=== PATIENT | female | born 1960 | race Caucasian/White ===

== ENCOUNTER 2016-05-21 13:28 | Emergency (ER) | payer MEDICAID ==
[2016-05-21 13:28] VITALS: BMI 40.0
--- NOTE | 2016-05-21 14:27 | C.PDOC ---
History Of Present Illness 55 y/o F c PMHx DM on Metformin 500 BID p/w hyperglycemia. Patient states she saw her OBGYN 3 weeks ago for heavy vaginal bleeding and yeast infection. Blood work was performed and her glucose was found to be very elevated and she was instructed to go to the ER. She reports increased thirst, dry mouth, metallic taste, blurry vision. She denies fever, vomiting, dyspnea, dysuria. PMD Thelma Fontaine Time Seen by Provider: 05/21/16 14:21 Chief Complaint (Nursing): High Blood Sugar Past Medical History Reviewed: Historical Data, Nursing Documentation, Vital Signs Vital Signs: Last Vital Signs Temp 98.2 F 05/21/16 14:09 Pulse 92 H 05/21/16 14:09 Resp BP Pulse Ox - Medical History PMH: Anxiety, Bipolar Disorder, Depression, Diabetes, Schizophrenia Surgical History: No Surg Hx - [facility] Procedures INDIVID PSYCHOTHERAP NEC (08/25/14) OTHER GROUP THERAPY (08/25/14) Family History: States: Unknown Family Hx - Social History Hx Tobacco Use: Yes (heavy smoker) Hx Alcohol Use: No Hx Substance Use: No - Immunization History Hx Tetanus Toxoid Vaccination: Yes (2012) Hx Influenza Vaccination: No Hx Pneumococcal Vaccination: No Review Of Systems Except As Marked, All Systems Reviewed And Found Negative. Constitutional: Negative for: Fever Cardiovascular: Negative for: Chest Pain Physical Exam - Physical Exam Additional Physical Exam Comments: Constitutional: No acute distress. Head: Normocephalic. Atraumatic. Eyes: PERRL. ENT: Dry mucous membranes. Neck: Supple. Cardiovascular: Regular rate. Radial pulse 2+ bilaterally. Chest: No tenderness. Respiratory: Clear to auscultation bilaterally. GI: Soft. Nontender. Nondistended. Back: No CVA tenderness. Musculoskeletal: No tenderness or swelling of extremities. Skin: No rash. Neurologic: Alert, no focal deficit. ED Course And Treatment - Laboratory Results Result Diagrams: 05/21/16 15:04 05/21/16 15:04 Medical Decision Making Medical Decision Making: Hydrate, r/o DKA. Chest X-Ray, Read by Cheryl Lobo MD: FINDINGS: LUNGS: No focal consolidation. Please note that chest x-ray has limited sensitivity for the detection of pulmonary masses. PLEURA: No significant pleural effusion identified. No definite pneumothorax . CARDIOVASCULAR: The cardiomediastinal silhouette appears within normal limits of size. OSSEOUS STRUCTURES: No acute osseous abnormality identified. VISUALIZED UPPER ABDOMEN: Unremarkable. OTHER FINDINGS: None. IMPRESSION: No focal consolidation, significant pleural effusion, or definite pneumothorax identified. Patient with hyperglycemia, trace ketones, no acidosis, normal bicarb. No DKA. Discussed case with patient's primary care office and [employer] REPRESENTATIVE Roseanna. They gave her appointment for 05/29 at 3pm and instructed increase metformin to 1000mg BID until then. Instructed to return to the ER immediately for fever, dyspnea, vomiting, lethargy, dehydration. Disposition - Disposition Disposition: HOME/ ROUTINE Disposition Time: 16:23 Condition: STABLE Additional Instructions: You have an appointment with Dr. Mccarthy on 05/29, Friday, at 3pm. Prescriptions: MetFORMIN [glucOPHAGE] 1,000 mg PO BID #20 tab Instructions: Diabetic Hyperglycemia (ED) - Clinical Impression Clinical Impression: Hyperglycemia
[2016-05-21] MEDS ORDERED: Sodium Chloride 0.9% 1,000 ML IV STA (14:54)
[2016-05-21 15:08] LABS: BASO # 0.1 K/uL (0.0-0.2); BASO % 0.6 % (0.0-2.0); EOS % 0.3 % (0.0-4.0); HEMATOCRIT 36.6 % (34.0-47.0); LYMPH # 2.5 K/uL (1.0-4.3); LYMPH % 25.1 % (20.0-40.0); MEAN CELL VOLUME 69.6 fL (81.0-99.0); MEAN CORPUSCULAR HEMOGLOBIN 21.8 pg (27.0-31.0); MEAN CORPUSCULAR HGB CONC 31.3 g/dL (33.0-37.0); MEAN PLATELET VOLUME 7.6 fL (7.2-11.7); MONO # 0.9 K/uL (0.0-0.8); RED CELL DISTRIBUTION WIDTH 15.6 % (11.5-14.5); WHITE BLOOD COUNT 10.1 K/uL (4.8-10.8)
[2016-05-21 15:20] LABS: CHLORIDE 95 mmol/L (98-107)
[2016-05-21 15:21] LABS: POTASSIUM 4.4 mmol/L (3.6-5.2); SODIUM 135 mmol/L (132-148)
[2016-05-21 15:21] LABS: DRAW SITE VENOUS; VENOUS BLOOD GAS BASE EXCESS 0.8 mmol/L (0.0-2.0); VENOUS BLOOD GAS PCO2 46 mmHg (40-60); VENOUS BLOOD PH 7.37 (7.32-7.43)
[2016-05-21 15:23] LABS: ALB/GLOB RATIO 1.3 (1.0-2.1); AST/SGOT 32 U/L (14-36); BILIRUBIN,TOTAL 0.5 mg/dL (0.2-1.3); BLOOD UREA NITROGEN 4 mg/dL (7-17); CARBON DIOXIDE 25 mmol/L (22-30); GFR AFRICAN-AMERICAN > 60; TOTAL PROTEIN 7.7 g/dL (6.3-8.3)
[2016-05-21 15:24] LABS: ALKALINE PHOSPHATASE 99 U/L (38-126); ALT/SGPT 25 U/L (9-52); CALCIUM 9.5 mg/dl (8.6-10.4)
[2016-05-21 15:38] LABS: GLUCOSE,RANDOM 402 mg/dL (65-105)
[2016-05-21 15:41] LABS: RBC URINE 7 /hpf (0-3); URINE BILIRUBIN NEGATIVE (NEGATIVE); URINE COLOR Straw (YELLOW); URINE GLUCOSE (UA) 3+ mg/dL (Normal); URINE KETONE 1+ mg/dL (NEGATIVE); URINE LEUKOCYTE ESTERASE NEG Leu/uL (Negative); URINE PROTEIN NEGATIVE (NEGATIVE); URINE UROBILINOGEN NORMAL mg/dL (0.2-1.0); WBC URINE 1 /hpf (0-5)
[2016-05-21 15:43] LABS: URINE BLOOD 1+ (NEGATIVE)
--- NOTE | 2016-05-21 16:04 | RAD ---
HISTORY: hyperglycemia COMPARISON: None available. TECHNIQUE: Chest, one view. FINDINGS: LUNGS: No focal consolidation. Please note that chest x-ray has limited sensitivity for the detection of pulmonary masses. PLEURA: No significant pleural effusion identified. No definite pneumothorax . CARDIOVASCULAR: The cardiomediastinal silhouette appears within normal limits of size. OSSEOUS STRUCTURES: No acute osseous abnormality identified. VISUALIZED UPPER ABDOMEN: Unremarkable. OTHER FINDINGS: None. IMPRESSION: No focal consolidation, significant pleural effusion, or definite pneumothorax identified.
[2016-05-21 16:48] VITALS: BP 102/65; PULSE 84; RESP 16; TEMP 98.1; O2SAT 99
== END 2016-05-21 16:49 | disposition home or self-care (01) ==
LOC: C.ER 13:28
DX: E11.65 Type 2 diabetes mellitus with hyperglycemia (principal); Z79.84 Long term (current) use of oral hypoglycemic drugs
CPT/HCPCS: 71010; 80053; 81001; 82009; 82803; 85025; 86850; 86900; 96360; 99284; J7040

== ENCOUNTER 2016-10-04 12:41 | Emergency (ER) | payer MEDICAID ==
[2016-10-04 12:42] VITALS: BMI 40.0
[2016-10-04 13:06] VITALS: BP 115/65; TEMP 98.7
--- NOTE | 2016-10-04 13:23 | C.PDOC ---
History Of Present Illness 56 y/o female presents to ED with complaints of left sided digitally and reproducible chest pain for the last 2 days. Denies heavy lifting, trauma, shortness of breath, palpitations, radiation of pain, or fever. Time Seen by Provider: 10/04/16 13:21 Chief Complaint (Nursing): Chest Pain History Per: Patient History/Exam Limitations: no limitations Onset/Duration Of Symptoms: Days (2) Current Symptoms Are (Timing): Still Present Severity: Moderate Quality: "Pain" Associated Symptoms: denies: Nausea, Dyspnea, Diaphoresis, Syncope Modifying Factors: None Exacerbating Factors: None Alleviating Factors: None Recent travel outside of the [place]: No Additional History Per: Patient Past Medical History Reviewed: Historical Data, Nursing Documentation, Vital Signs Vital Signs: Last Vital Signs Temp 98.7 F 10/04/16 13:05 Pulse 74 10/04/16 13:39 Resp 16 10/04/16 13:39 BP 115/65 10/04/16 13:39 Pulse Ox 100 10/04/16 13:39 - Medical History PMH: Anxiety, Bipolar Disorder, Depression, Diabetes, HTN, Schizophrenia Denies: HIV - [facility] Procedures INDIVID PSYCHOTHERAP NEC (08/25/14) OTHER GROUP THERAPY (08/25/14) Family History: States: Unknown Family Hx - Social History Hx Tobacco Use: Yes (heavy smoker) Hx Alcohol Use: No Hx Substance Use: No - Immunization History Hx Tetanus Toxoid Vaccination: Yes (2012) Hx Influenza Vaccination: No Hx Pneumococcal Vaccination: No Review Of Systems Except As Marked, All Systems Reviewed And Found Negative. Constitutional: Negative for: Fever, Chills Cardiovascular: Positive for: Chest Pain. Negative for: Palpitations, Edema, Light Headedness Respiratory: Negative for: Cough, Shortness of Breath, Hemoptysis Gastrointestinal: Negative for: Nausea, Vomiting, Abdominal Pain, Diarrhea Genitourinary: Negative for: Dysuria, Frequency, Hematuria Musculoskeletal: Negative for: Neck Pain, Back Pain Skin: Negative for: Rash, Bruising Neurological: Negative for: Weakness, Numbness, Headache, Dizziness Physical Exam - Physical Exam Appears: Non-toxic, No Acute Distress Skin: Normal Color, Warm, Dry, No Rash Head: Atraumatic, Normacephalic Eye(s): bilateral: Normal Inspection Nose: Normal Oral Mucosa: Moist Neck: Normal ROM, Supple Chest: Symmetrical, No Deformity, Tenderness (digitally and reproducible pain to left parasternal border area of T2. ) Cardiovascular: Rhythm Regular, No Murmur Respiratory: Normal Breath Sounds, No Rales, No Rhonchi, No Wheezing Gastrointestinal/Abdominal: Soft, No Tenderness Extremity: Bilateral: Atraumatic, Normal ROM Neurological/Psych: Oriented x3, Normal Speech, Normal Cognition ED Course And Treatment ECG: Interpreted By Me ECG Rhythm: Sinus Rhythm ECG Interpretation: Normal Rate From EC O2 Sat by Pulse Oximetry: 96 (on RA) Pulse Ox Interpretation: Normal Medical Decision Making Medical Decision Making: digitally and positionally reproducable L parasternal CP with normal EKG, no associated cardiac s/s pt defers w/u with informed consent. ice/nsaids educated Disposition Doctor Will See Patient In The: Office Counseled Patient/Family Regarding: Studies Performed, Diagnosis - Disposition Referrals: [facility] [Outside] [facility] [Outside] [facility] [Outside] Disposition: HOME/ ROUTINE Disposition Time: 13:23 Condition: GOOD Additional Instructions: continue ice packs 1/2 hour per hour, nothing hot. Mortrin 400-600 mg every 6 hours as needed for chest wall discomfort pepcid/protonix each night to prevent stomach irritation from the Motrin No heavy lifting for 1 week Follow-up in our Clinic as needed. Instructions: Costochondritis (ED) Forms: [facility] (Tongan) - Clinical Impression Clinical Impression: Chest wall discomfort - Scribe Statement The provider has reviewed the documentation as recorded by the Scribfernando Machado All medical record entries made by the Scribe were at my direction and personally dictated by me. I have reviewed the chart and agree that the record accurately reflects my personal performance of the history, physical exam, medical decision making, and the department course for this patient. I have also personally directed, reviewed, and agree with the discharge instructions and disposition.
[2016-10-04 13:41] VITALS: PULSE 74; RESP 16
[2016-10-04 14:37] VITALS: O2SAT 96
--- NOTE | 2016-10-05 20:02 | CARD ---
APPROVED REPORT EKG Measurement Heart [id number] <Conclusion> Normal sinus rhythm Normal ECG
== END 2016-10-04 13:38 | disposition home or self-care (01) ==
LOC: C.ER 12:41
DX: R07.89 Other chest pain (principal)

== ENCOUNTER 2016-11-28 13:14 | Emergency (ER) | payer MEDICAID ==
[2016-11-28 13:15] VITALS: BMI 40.0
[2016-11-28 13:50] VITALS: O2SAT 100
[2016-11-28] MEDS ORDERED: Sodium Chloride 0.9% 1,000 ML IV ONE (14:10)
[2016-11-28 14:42] LABS: BASO % 0.5 % (0.0-2.0); EOS # 0.1 K/uL (0.0-0.7); EOS % 0.7 % (0.0-4.0); HEMATOCRIT 38.7 % (34.0-47.0); LYMPH # 3.6 K/uL (1.0-4.3); LYMPH % 40.4 % (20.0-40.0); MEAN CELL VOLUME 69.5 fL (81.0-99.0); MEAN CORPUSCULAR HEMOGLOBIN 22.3 pg (27.0-31.0); MEAN CORPUSCULAR HGB CONC 32.1 g/dL (33.0-37.0); MONO # 0.7 K/uL (0.0-0.8); MONO % 7.8 % (0.0-10.0); RED CELL DISTRIBUTION WIDTH 16.2 % (11.5-14.5); WHITE BLOOD COUNT 8.8 K/uL (4.8-10.8)
[2016-11-28 14:46] LABS: CHLORIDE 99 mmol/L (98-107); SODIUM 137 mmol/L (132-148)
[2016-11-28 14:48] LABS: BILIRUBIN,TOTAL 0.5 mg/dL (0.2-1.3); CARBON DIOXIDE 28 mmol/L (22-30); GFR AFRICAN-AMERICAN > 60
[2016-11-28 14:49] LABS: ALKALINE PHOSPHATASE 85 U/L (38-126); ALT/SGPT 30 U/L (9-52); AST/SGOT 17 U/L (14-36); BLOOD UREA NITROGEN 9 mg/dL (7-17); CALCIUM 9.9 mg/dl (8.6-10.4); GLUCOSE,RANDOM 121 mg/dL (65-105); TOTAL PROTEIN 8.4 g/dL (6.3-8.3)
[2016-11-28 14:50] LABS: ALCOHOL SERUM < 10 mg/dl (0-10)
[2016-11-28] MEDS ORDERED: Sodium Chloride 0.9% 1,000 ML ONE (15:12)
[2016-11-28 15:47] LABS: URINE BILIRUBIN NEGATIVE (NEGATIVE); URINE BLOOD 1+ (NEGATIVE); URINE COLOR Straw (YELLOW); URINE GLUCOSE (UA) NORMAL (Normal); URINE KETONE NEGATIVE (NEGATIVE); URINE LEUKOCYTE ESTERASE NEG Leu/uL (Negative); URINE PROTEIN NEGATIVE (NEGATIVE); URINE UROBILINOGEN NORMAL mg/dL (0.2-1.0); WBC URINE < 1 /hpf (0-5)
[2016-11-28 15:50] LABS: RBC URINE 2 /hpf (0-3); URINE BACTERIA RARE (<OCC)
--- NOTE | 2016-11-28 16:02 | C.PDOC ---
History Of Present Illness Pt states she lost balance and fell forward on her knees yesterday. No LOC. No head injury. - HPI Time Seen by Provider: 11/28/16 13:43 Chief Complaint (Nursing): Trauma History Per: Patient Injury Occurred (Timing): Days Ago: (1) Location Of Injury: Right: Knee, Left: Knee, Anterior: Knee Severity: Moderate Additional History Per: Prior Records - Fall Fall:Prior To Injury: Lost Balance (?) Past Medical History Reviewed: Historical Data, Nursing Documentation, Vital Signs Vital Signs: Last Vital Signs Temp 98.4 F 11/28/16 13:35 Pulse 97 H 11/28/16 13:35 Resp 20 11/28/16 13:35 BP 132/78 11/28/16 13:35 Pulse Ox 100 11/28/16 16:04 - Medical History PMH: Anxiety, Bipolar Disorder, Depression, Diabetes, HTN, Schizophrenia - [facility] Procedures INDIVID PSYCHOTHERAP NEC (08/25/14) OTHER GROUP THERAPY (08/25/14) Family History: States: Unknown Family Hx - Social History Hx Tobacco Use: Yes (heavy smoker) Hx Alcohol Use: No Hx Substance Use: No - Immunization History Hx Tetanus Toxoid Vaccination: Yes (2012) Hx Influenza Vaccination: No Hx Pneumococcal Vaccination: No Review Of Systems Except As Marked, All Systems Reviewed And Found Negative. Constitutional: Negative for: Fever Cardiovascular: Negative for: Chest Pain, Palpitations Respiratory: Negative for: Shortness of Breath Gastrointestinal: Negative for: Vomiting Musculoskeletal: Positive for: Back Pain (low). Negative for: Neck Pain Skin: Negative for: Rash Neurological: Negative for: Weakness, Numbness, Seizures, Altered Mental Status Psych: Positive for: Depression. Negative for: Suicidal ideation Physical Exam - Physical Exam Appears: Non-toxic, No Acute Distress Skin: Normal Color, Warm, Dry Head: Atraumatic, Normacephalic Eye(s): bilateral: Normal Inspection, PERRL, EOMI Neck: Normal ROM, No Midline Cervical Tenderness, No Step Off Deformity, Supple Chest: Symmetrical, No Deformity Cardiovascular: Rhythm Regular Respiratory: Normal Breath Sounds, No Accessory Muscle Use Gastrointestinal/Abdominal: Soft, No Tenderness Back: No CVA Tenderness, Paraspinal Tenderness (lumbosacral), Other ( superficial lacerations on b/l forearms at various stages of healing, 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".) Extremity: Normal ROM, Tenderness (anterior b/l knee with ecchymosis), No Deformity Pulses: Left Dorsalis Pedis: Normal, Right Dorsalis Pedis: Normal Neurological/Psych: Oriented x3, Normal Motor, Normal Sensation ED Course And Treatment - Laboratory Results Result Diagrams: 11/28/16 14:33 11/28/16 14:33 Lab Interpretation: No Acute Changes Urine POC: Negative ECG: Interpreted By Me, Viewed By Me ECG Rhythm: Sinus Rhythm, Nonspecific Changes ECG Interpretation: No Acute Changes Rate From EC O2 Sat by Pulse Oximetry: 100 Pulse Ox Interpretation: Normal Progress Note: Pt was evaluated by the chemical tank worker who d/w Dr. Alva. They psychiatrically cleared pt for discharge home. Pt has appointment with her mental health professional tomorrow. Reassessment Condition: Improved Disposition Counseled Patient/Family Regarding: Studies Performed, Diagnosis, Need For Followup, Rx Given, Smoking Cessation - Disposition Disposition: HOME/ ROUTINE Disposition Time: 17:03 Condition: IMPROVED Additional Instructions: Follow up with your mental health professional tomorrow as scheduled. Follow up with your primary doctor within 1 week. Return to the ER if you develop weakness , pass out, worsening of symptoms or if you have any other concerns. Prescriptions: Naproxen [Naprosyn] 1 tab PO BID PRN #20 tab PRN Reason: Pain Instructions: Knee Sprain (ED) Forms: [facility] (Khmer) - Clinical Impression Clinical Impression: Knee contusion, Fall
--- NOTE | 2016-11-28 16:35 | RAD ---
PROCEDURE: Bilateral knees dated 11/28/2016 HISTORY: Bilateral knee pain; s/p fall on knees yesterday COMPARISON: No prior studies available FINDINGS: BONES: No evidence of acute displaced fracture nor dislocation. The osseous structures appear intact. . There is mild degenerative osteoarthritis most notably affecting the medial compartments. Joint spaces are relatively preserved however there are small medial marginal osteophyte formation seen arising from the medial tibial plateau and distal medial femoral condyles left slightly larger than right. Small left-sided posterior patellar osteophytes also present. Small of left suprapatellar joint effusion. No significant right-sided effusion JOINTS: Right Knee: Normal. No osteoarthritis. Left knee: Normal. No osteoarthritis. SOFT TISSUES: Right Knee: Normal. Left Knee: Normal. JOINT EFFUSION: Right Knee: None. Left Knee: None. OTHER FINDINGS: None. IMPRESSION: No evidence of acute displaced fracture nor dislocation. Small left-sided suprapatellar joint effusion. DJD both knees left greater than right as detailed above.
[2016-11-28 17:16] VITALS: BP 116/72; PULSE 73; RESP 18; TEMP 97.7
--- NOTE | 2016-11-29 11:51 | CARD ---
APPROVED REPORT EKG Measurement Heart [id number] <Conclusion> Normal sinus rhythm Possible Left atrial enlargement Borderline ECG
== END 2016-11-28 17:31 | disposition home or self-care (01) ==
LOC: C.ER 13:14
DX: S80.02XA Contusion of left knee, initial encounter (principal); S80.01XA Contusion of right knee, initial encounter; W01.0XXA Fall on same level from slipping, tripping and stumbling without subsequent striking against object, initial encounter; I10 Essential (primary) hypertension; E11.9 Type 2 diabetes mellitus without complications; Z87.891 Personal history of nicotine dependence; M17.0 Bilateral primary osteoarthritis of knee
CPT/HCPCS: 73562; 80053; 80320; 80324; 80329; 80345; 80346; 80349; 80353; 80358; 80361; 81001; 83992; 84703; 85025; 93005; 96361; 96374; 99285; J1885; J7040

== ENCOUNTER 2018-04-29 12:49 | Inpatient (IN) | payer MEDICAID ==
[2018-04-29 12:50] VITALS: BMI 40.0
[2018-04-29 15:19] LABS: BASO % 0.5 % (0.0-2.0); EOS % 0.2 % (0.0-4.0); LYMPH # 3.3 K/uL (1.0-4.3); LYMPH % 30.6 % (20.0-40.0); MEAN CORPUSCULAR HEMOGLOBIN 22.3 pg (27.0-31.0); MEAN CORPUSCULAR HGB CONC 31.9 g/dL (33.0-37.0); MEAN PLATELET VOLUME 7.5 fL (7.2-11.7); MONO # 0.7 K/uL (0.0-0.8); NEUT # 6.6 K/uL (1.8-7.0); NEUT % 61.7 % (50.0-75.0); NRBC % 0.1 % (0.0-2.0); RBC 6.5 Mil/uL (3.80-5.20); RED CELL DISTRIBUTION WIDTH 14.6 % (11.5-14.5); WHITE BLOOD COUNT 10.7 K/uL (4.8-10.8)
[2018-04-29 15:22] LABS: HEMOGLOBIN 14.5 g/dL (11.0-16.0)
[2018-04-29 15:32] LABS: ALB/GLOB RATIO 1.3 (1.0-2.1); ALBUMIN 4.4 g/dL (3.5-5.0); ALT/SGPT 10 U/L (9-52); AST/SGOT 18 U/L (14-36); BLOOD UREA NITROGEN 7 mg/dL (7-17); CALCIUM 9.7 mg/dl (8.6-10.4); GFR NON-AFRICAN AMERICAN > 60
[2018-04-29] MEDS ORDERED: Sodium Chloride 0.9% 1,000 ML IV ONE (15:36)
--- NOTE | 2018-04-29 16:05 | CT ---
Date of service: 04/29/2018 PROCEDURE: CT OF THE TEMPORAL BONES WITHOUT CONTRAST HISTORY: right mastoid and ear pain. hx dm COMPARISON: None available. TECHNIQUE: High resolution axial images of the temporal bones were obtained. Coronal and sagittal reformats were generated. Radiation dose: Total exam DLP = 706.28 mGy-cm. This CT exam was performed using one or more of the following dose reduction techniques: Automated exposure control, adjustment of the mA and/or kV according to patient size, and/or use of iterative reconstruction technique. FINDINGS: RIGHT TEMPORAL BONE: RIGHT MIDDLE EAR: Normal. RIGHT INNER EAR: Cochlea: Normal. Semicircular canals: Normal. RIGHT MASTOID AIR CELLS: Normal. RIGHT INTERNAL AUDITORY CANAL: Normal. RIGHT EXTERNAL AUDITORY CANAL: Normal. RIGHT VESTIBULAR AND COCHLEAR AQUEDUCT: Normal. OTHER FINDINGS: None. LEFT TEMPORAL BONE: LEFT MIDDLE EAR: Normal. LEFT INNER EAR: Cochlea: Normal. Semicircular canals: Normal. LEFT MASTOID AIR CELLS: Normal. LEFT INTERNAL AUDITORY CANAL: Normal. LEFT EXTERNAL AUDITORY CANAL: Normal. LEFT VESTIBULAR AND COCHLEAR AQUEDUCTS: Normal. OTHER FINDINGS: None. IMPRESSION: Unremarkable non contrast enhanced CT of the temporal bones.
--- NOTE | 2018-04-29 16:13 | C.PDOC ---
History Of Present Illness 57 y/o female with dm and bipolar disorder presents to ED with 2 day hx of right ear pain and swelling with pain that radiates behind and distal to right ear. denies fever and chills. pt did not take po dm medication this morning. pt not taking anything for pain at home. Time Seen by Provider: 04/29/18 14:45 Chief Complaint (Nursing): ENT Problem History Per: Patient History/Exam Limitations: None Onset/Duration Of Symptoms: Days Current Symptoms Are (Timing): Worse Quality (Ear): Pain W/Touch, Swelling. denies: Discharge Symptoms Have Been: Continuous Severity: Moderate Past Medical History Reviewed: Historical Data, Nursing Documentation, Vital Signs Vital Signs: Last Vital Signs Temp 98.1 F 04/29/18 13:15 Pulse 91 H 04/29/18 13:15 Resp 18 04/29/18 13:15 BP 104/72 04/29/18 13:15 Pulse Ox 98 04/29/18 13:15 - Medical History PMH: Anxiety, Bipolar Disorder, Depression, Diabetes, HTN, Malignancy (colon CA), Schizophrenia Denies: HIV, Chronic Kidney Disease, Seizures, Sexually Transmitted Disease - [facility] Procedures INDIVID PSYCHOTHERAP NEC (08/25/14) OTHER GROUP THERAPY (08/25/14) Family History: States: Unknown Family Hx - Social History Hx Tobacco Use: Yes (heavy smoker) Hx Alcohol Use: No Hx Substance Use: No - Immunization History Hx Tetanus Toxoid Vaccination: Yes (2012) Hx Influenza Vaccination: No Hx Pneumococcal Vaccination: No Review Of Systems Constitutional: Negative for: Fever, Chills ENT: Positive for: Ear Pain, Throat Pain. Negative for: Ear Discharge, Throat Swelling Cardiovascular: Negative for: Chest Pain Respiratory: Negative for: Cough Gastrointestinal: Negative for: Nausea, Vomiting Musculoskeletal: Positive for: Neck Pain Neurological: Negative for: Weakness, Numbness Physical Exam - Physical Exam Appears: Non-toxic, No Acute Distress Skin: Warm, Dry Head: Atraumatic, Normacephalic, Tenderness (right mastoid) Eye(s): bilateral: Normal Inspection Ear(s): Left: Normal, Right: TM Erythema, Other (mild swelling and erythema in canal, no debris. +mastoid tenderness and tender distal to right ear. ) Nose: No Discharge Oral Mucosa: Moist Tongue: Normal Appearing Lips: Normal Appearing Throat: Erythema, No Exudate Neck: No Midline Cervical Tenderness, Supple Lymphatic: Adenopathy (tender submandibular node on right side) Cardiovascular: Rhythm Regular Respiratory: No Decreased Breath Sounds, No Wheezing ED Course And Treatment - Laboratory Results Result Diagrams: 04/29/18 15:17 04/29/18 15:17 Lab Results: Total Bilirubin 0.6 mg/dL (0.2-1.3) 04/29/18 15:17 AST 18 U/L (14-36) 04/29/18 15:17 ALT 10 U/L (9-52) 04/29/18 15:17 Alkaline Phosphatase 123 U/L (38-126) 04/29/18 15:17 Total Protein 7.7 g/dL (6.3-8.3) 04/29/18 15:17 Albumin 4.4 g/dL (3.5-5.0) 04/29/18 15:17 Globulin 3.3 gm/dL (2.2-3.9) 04/29/18 15:17 Albumin/Globulin Ratio 1.3 (1.0-2.1) 04/29/18 15:17 O2 Sat by Pulse Oximetry: 98 Pulse Ox Interpretation: Normal - CT Scan/US iac Other Rad Studies (CT/US): Read By Radiologist, Radiology Report Reviewed CT/US Interpretation: Unremarkable non contrast enhanced CT of the temporal bones. Medical Decision Making Medical Decision Making: pt with hx dm and right ear and mastoid pain; will get labs and mastoid ct to r/o mastoiditis. 1700 ct neg for mastoiditis; pt being given fluids for elevated glucose; given dose of clindamycin in ed. will d/c with clinda and cortisporin otic. Disposition - Disposition Forms: [facility] (Thai)
[2018-04-29] MEDS ORDERED: Ciprofloxacin 400mg/200ml D5W 400 MG/200 ML BAG IVPB STA (17:58)
[2018-04-29] MEDS ORDERED: Ciprofloxacin 400mg/200ml D5W 400 MG/200 ML BAG IVPB ONE (18:12)
--- NOTE | 2018-04-29 18:14 | CP.PCM.CON ---
History of Present Illness - History of Present Illness History of Present Illness: 57 y/o female with dm and bipolar disorder presents to ED with 2 day hx of right ear pain and swelling with pain that radiates behind and distal to right ear. denies fever and chills. started on empiric IV rx pending imaging and ENT eval cultures sent - Medical History PMH: Anxiety, Bipolar Disorder, Depression, Diabetes, HTN, Malignancy (colon CA), Schizophrenia Denies: HIV, Chronic Kidney Disease, Seizures, Sexually Transmitted Disease - [facility] Procedures INDIVID PSYCHOTHERAP NEC (08/25/14) OTHER GROUP THERAPY (08/25/14) Review of Systems - Review of Systems All systems: reviewed and no additional remarkable complaints except - Constitutional Constitutional: As Per HPI - EENT Eyes: absent: As Per HPI, Blind Spots, Blurred Vision, Change in Vision, Decreased Night Vision, Diplopia, Discharge, Dry Eye, Exophthalmos, Floaters, Irritation, Itchy Eyes, Loss of Peripheral Vision, Pain, Photophobia, Requires Corrective Lenses, Sees Flashes, Spots in Vision, Tunnel Vision, Other Visual Disturbances, Loss of Vision, Other Ears: As Per HPI Nose/Mouth/Throat: absent: As Per HPI, Epistaxis, Nasal Congestion, Nasal Discharge, Nasal Obstruction, Nasal Trauma, Nose Pain, Post Nasal Drip, Sinus Pain, Sinus Pressure, Bleeding Gums, Change in Voice, Dental Pain, Dry Mouth, Dysphagia, Halitosis, Hoarsness, Lip Swelling, Mouth Lesions, Mouth Pain, Odynophagia, Sore Throat, Throat Swelling, Tongue Swelling, Facial Pain, Neck Pain, Neck Mass, Other - Breasts Breasts: absent: As Per HPI, Change in Shape, Mass, Pain, Nipple Discharge, Nipple Inversion, Skin Changes, Swelling, Other - Cardiovascular Cardiovascular: absent: As Per HPI, Acrocyanosis, Chest Pain, Chest Pain at Res t, Chest Pain with Activity, Claudication, Diaphoresis, Dyspnea, Dyspnea on Exertion, Edema, Irregular Heart Rhythm, Pain Radiating to Arm/Neck/Jaw, Leg Edema, Leg Ulcers, Lightheadedness, Orthopnea, Palpitations, Paroxysmal Nocturnal Dyspnea, Pedal Edema, Radiating Pain, Rapid Heart Rate, Slow Heart Rate, Syncope, Other - Respiratory Respiratory: absent: As Per HPI, Cough, Dyspnea, Hemoptysis, Dyspnea on Exertion, Wheezing, Snoring, Stridor, Pain on Inspiration, Chest Congestion, Excessive Mucous Production, Change in Mucous Color, Pain with Coughing, Other - Gastrointestinal Gastrointestinal: absent: As Per HPI, Abdominal Pain, Belching, Bloating, Change in Bowel Habits, Change in Stool Character, Coffee Ground Emesis, Constipation, Cramping, Diarrhea, Dyspepsia, Dysphagia, Early Satiety, Excessive Flatus, Fecal Incontinence, Heartburn, Hematemesis, Hematochezia, Loose Stools, Melena, Nausea, Odynophagia, Temesmus, Vomiting, Other - Genitourinary Genitourinary: absent: As Per HPI, Change in Urinary Stream, Difficulty Urinating, Dysuria, Flank Pain, Hematuria, Pyuria, Nocturia, Urinary Incontinence, Urinary Frequency, Urinary Hesitance, Urinary Urgency, Voiding Fr eq/Small Amts, Freq UTI, Hx Renal/Bladder Calculi, Hx /Renal Surgery, Bladder Distension, Other - Reproductive: Female Reproductive:Female: absent: As Per HPI, Amenorrhea, Amenorrhea/ Control, Currently Menstual, Cycle <21 Days, Cycle >35 Days, Cycle Variable, Menses 1-7 Days, Menses >/= 8 Days, Menses Variable, Cycle > 4 Weeks Between, No Menses for 6 Months, Heavy Menses, Light Menses, Normal Menses, Spotting Between Cycles, S/P Hysterectomy, Menopausal, Post Menopausal, Premenarche, Abnormal Vaginal Bleeding, Dysmenorrhea, Dyspareunia, Genital Lesions, Genital Pruritis, Pelvic Pain, Prolapse Symptoms, Sexual Dysfunction, Vaginal Discharge, Vaginal Dryness, Vaginal Odor, Vaginal Pruritis, Other - Menstruation Menstruation: absent: As Per HPI, Amenorrhea, Amenorrhea/ Control, Currently Menstual, Cycle <21 Days, Cycle >35 Days, Cycle Variable, Menses 1-7 Days, Menses >/= 8 Days, Menses Variable, Cycle > 4 Weeks Between, No Menses for 6 Months, Heavy Menses, Light Menses, Normal Menses, Spotting Between Cycles, S/P Hysterectomy, Menopausal, Post Menopausal, Premenarche, Abnormal Vaginal Bleeding, Dysmenorrhea, Other - Musculoskeletal Musculoskeletal: absent: As Per HPI, Abnormal Gait, Arthralgias, Atrophy, Back Pain, Deformity, Joint Swelling, Limited Range of Motion, Loss of Height, Muscle Cramps, Muscle Weakness, Myalgias, Neck Pain, Numbness, Radiating Pain into Limb, Stiffness, Tingling, Other - Integumentary Integumentary: absent: As Per HPI, Acne, Alopecia, Bleeding Lesions, Change in Hair, Change in Nails, Change in Pigmentation, Changing Lesions, Dry Skin, Erythema, Furuncle, Hirsutism, Lesions, New Lesions, Non-Healing Lesions, Photosensitivity, Pruritus, Rash, Skin Pain, Skin Ulcer, Sores, Striae, Swelling, Unusual Bruising, Wounds, Jaundice, Other - Neurological Neurological: absent: As Per HPI, Abnormal Gait, Abnormal Hearing, Abnormal Movements, Abnormal Speech, Behavioral Changes, Burning Sensations, Confusion, Convulsions, Disequilibrium, Dizziness, Numbness, Focal Weakness, Frequent Falls, Headaches, Lack of Coordination, Loss of Vision, Memory Loss, Paresthesias, Radicular Pain, Restless Legs, Sensory Deficit, Syncope, Tingling, Tremor, Vertigo, Weakness, Other Visual Disturbances, Other - Psychiatric Psychiatric: absent: As Per HPI, Abnormal Sleep Pattern, Anhedonia, Anxiety, Auditory Hallucinations, Behavioral Changes, Change in Appetite, Change in Libido, Confusion, Depression, Difficulty Concentrating, Hallucinations, Homicidal Ideation, Hopelessness, Irritability, Memory Loss, Mood Swings, Panic Attacks, Paranoia, Suicidal Ideation, Visual Hallucinations, Tactile Hallucinations, Other - Endocrine Endocrine: absent: As Per HPI, Change in Body Appearance, Change in Libido, Cold Intolorance, Deepening of Voice, Excessive Sweating, Fatigue, Flushing, Heat Intolorance, Increase in Ring/Shoe/Hat Size, Palpitations, Polydipsia, Polyphagia, Polyuria, Other - Hematologic/Lymphatic Hematologic: absent: As Per HPI, Easy Bleeding, Easy Bruising, Lymphadenopathy, Other Past Patient History - Infectious Disease Hx of Infectious Diseases: None - Tetanus Immunizations Tetanus Immunization: Unknown - Past Medical History & Family History Past Medical History?: Yes - Past Social History Smoking Status: Heavy Smoker > 10 Cigarettes Daily - CARDIAC Hx Hypertension: Yes - PULMONARY Hx Tuberculosis: No - NEUROLOGICAL Hx Seizures: No - HEENT Hx HEENT Problems: No - RENAL Hx Chronic Kidney Disease: No - ENDOCRINE/METABOLIC Hx Endocrine Disorders: Yes (DMII) Hx Diabetes Mellitus Type 2: Yes - HEMATOLOGICAL/ONCOLOGICAL Hx Human Immunodeficiency Virus (HIV): No - INTEGUMENTARY Hx Dermatological Problems: No - MUSCULOSKELETAL/RHEUMATOLOGICAL Hx Musculoskeletal Disorders: No Hx Falls: No - GASTROINTESTINAL Hx Gastrointestinal Disorders: Yes Other/Comment: colon ca - GENITOURINARY/GYNECOLOGICAL Hx Sexually Transmitted Disorders: No - PSYCHIATRIC Hx Anxiety: Yes Hx Bipolar Disorder: Yes Hx Depression: Yes Hx Schizophrenia: Yes Hx Substance Use: No - SURGICAL HISTORY Hx Surgeries: Yes Hx Hysterectomy: Yes Other/Comment: ABDOMINAL SURGERY WITH MESH, colon resection. TOE SURGERY - ANESTHESIA Hx Anesthesia: Yes Hx Anesthesia Reactions: No Hx Malignant Hyperthermia: No Meds Allergies/Adverse Reactions: Allergies Allergy/AdvReac Type Severity Reaction Status Date / Time Penicillins Allergy RASH Verified 07/16/17 20:42 - Medications Medications: Current Medications Ciprofloxacin (Cipro 400mg/200ml Dsw) 400 mg in 200 mls @ 133 mls/hr IVPB STAT STA; Protocol Stop: 04/29/18 19:28 Physical Exam - Constitutional Appears: Non-toxic, No Acute Distress, Chronically Ill - Head Exam Head Exam: ATRAUMATIC, NORMAL INSPECTION, NORMOCEPHALIC - Eye Exam Eye Exam: EOMI, PERRL. absent: Scleral icterus Pupil Exam: NORMAL ACCOMODATION - ENT Exam ENT Exam: Mucous Membranes Dry, Mucous Membranes Moist, Normal Oropharynx. absent: TM's Normal Bilaterally Additional comments: erythema and tenderness left external canal dull TM + exudate - Neck Exam Neck exam: Negative for: Lymphadenopathy, Thyromegaly - Respiratory Exam Respiratory Exam: Decreased Breath Sounds, Clear to Auscultation Bilateral - Cardiovascular Exam Cardiovascular Exam: REGULAR RHYTHM, +S1, +S2 - GI/Abdominal Exam GI & Abdominal Exam: Diminished Bowel Sounds, Soft. absent: Tenderness - Rectal Exam Rectal Exam: Deferred - Exam Exam: NORMAL INSPECTION - Extremities Exam Extremities exam: Negative for: calf tenderness, pedal edema - Back Exam Back exam: absent: CVA tenderness (L), CVA tenderness (R), paraspinal tenderness - Neurological Exam Neurological exam: Alert, CN II-XII Intact, Oriented x3, Reflexes Normal - Psychiatric Exam Psychiatric exam: Depressed - Skin Skin Exam: Dry Results - Vital Signs Recent Vital Signs: Last Vital Signs Temp 97.4 F L 04/29/18 16:55 Pulse 75 04/29/18 16:55 Resp 16 04/29/18 16:55 BP 126/84 04/29/18 16:55 Pulse Ox 98 04/29/18 18:00 - Labs Result Diagrams: 04/30/18 06:45 04/30/18 06:45 Labs: Laboratory Results - last 24 hr 04/29/18 04/29/18 04/29/18 15:17 15:17 15:57 WBC 10.7 RBC 6.50 H Hgb 14.5 D Hct 45.5 MCV 70.0 L MCH 22.3 L MCHC 31.9 L RDW 14.6 H Plt Count 346 MPV 7.5 Neut % (Auto) 61.7 Lymph % (Auto) 30.6 [place] % (Auto) 7.0 Eos % (Auto) 0.2 Baso % (Auto) 0.5 Neut # (Auto) 6.6 Lymph # (Auto) 3.3 [place] # (Auto) 0.7 Eos # (Auto) 0.0 Baso # (Auto) 0.0 Sodium 133 Potassium 4.4 Chloride 98 Carbon Dioxide 28 Anion Gap 11 BUN 7 Creatinine 0.6 L Est GFR ( Amer) > 60 Est GFR (Non-Af Amer) > 60 POC Glucose (mg/dL) 281 H Random Glucose 281 H D Calcium 9.7 Total Bilirubin 0.6 AST 18 ALT 10 Alkaline Phosphatase 123 Total Protein 7.7 Albumin 4.4 Globulin 3.3 Albumin/Globulin Ratio 1.3 04/29/18 16:47 WBC RBC Hgb Hct MCV MCH MCHC RDW Plt Count MPV Neut % (Auto) Lymph % (Auto) [place] % (Auto) Eos % (Auto) Baso % (Auto) Neut # (Auto) Lymph # (Auto) [place] # (Auto) Eos # (Auto) Baso # (Auto) Sodium Potassium Chloride Carbon Dioxide Anion Gap BUN Creatinine Est GFR ( Amer) Est GFR (Non-Af Amer) POC Glucose (mg/dL) 254 H Random Glucose Calcium Total Bilirubin AST ALT Alkaline Phosphatase Total Protein Albumin Globulin Albumin/Globulin Ratio Assessment & Plan (1) Otitis externa Status: Acute (2) Mastoiditis Status: Acute - Assessment and Plan (Free Text) Assessment: doubt malignant otitis await MRI/Bone scan cultures sent ENT eval pending cont IV antibiotics
--- NOTE | 2018-04-29 19:34 | CP.PCM.PN ---
Subjective - Date & Time of Evaluation Date of Evaluation: 04/29/18 Time of Evaluation: 19:15 - Subjective Subjective: H&P dictated #[id number] Objective - Vital Signs/Intake and Output Vital Signs (last 24 hours): Temp Pulse Resp BP Pulse Ox 98.1 F 61 16 114/72 99 04/29/18 18:15 04/29/18 18:15 04/29/18 18:15 04/29/18 18:15 04/29/18 18:15 - Labs Labs: 04/29/18 15:17 04/29/18 15:17
[2018-04-29 20:39] VITALS: RESP 20
[2018-04-29] MEDS: (Novolin R) Insulin Human Regular 100 units/ml vial SC SCH (21:40)
[2018-04-29 22:14] LABS: SQUAMOUS EPITHIAL 1 /hpf (0-5); URINE BACTERIA RARE (<OCC); URINE BILIRUBIN NEGATIVE (NEGATIVE); URINE BLOOD NEGATIVE (NEGATIVE); URINE CLARITY Hazy (Clear); URINE COLOR Yellow (YELLOW); URINE GLUCOSE (UA) 3+ mg/dL (Normal); URINE LEUKOCYTE ESTERASE NEG Leu/uL (Negative); URINE PROTEIN 1+ mg/dL (NEGATIVE)
--- NOTE | 2018-04-30 06:38 | HP ---
CHIEF COMPLAINT: Right ear pain with clear discharge for the past two days and right-sided frontal pain and pulling sensation, progressively getting worse. HISTORY OF PRESENT ILLNESS: Ms. Mon is a 57-year-old female with past medical history of bipolar disorder, diabetes mellitus, hypertension, questionable history of colon CA, status post surgery many years ago who has been following up with Dr. Goyal, her primary care physician, and psychiatrist. Came into the emergency room with complaints of right ear pain and right frontal pain, the pain radiating into the right side in the mastoid region and in the back of the neck, progressively getting worse. She noticed sometime with clear discharge in the right ear. Denies any fever. Complaining of intermittent dizziness. Denies any headache. Denies any chest pain, shortness of breath, or wheezing. Denies any nausea, vomiting, abdominal pain, diarrhea, or constipation. Denies any urinary complaints. Denies any leg pains or leg cramps. Denies any other neurological symptoms. All other symptoms reviewed and were found to be negative. PAST MEDICAL HISTORY: As described, hypertension, diabetes mellitus, bipolar disorder, schizophrenia, questionable history of colon CA without any radiation therapy or chemotherapy, underwent colonoscopy about two months ago as per the patient at [facility]. PAST SURGICAL HISTORY: Colon surgery, ectopic surgery, and colonoscopy. FAMILY HISTORY: Nothing contributory to the present illness. PERSONAL HISTORY: She is . Having one child. Disabled. Living with her . SOCIAL HISTORY: Smokes [id number] packs per day for many years. Denies any alcohol or drug abuse. ALLERGIES: SHE IS ALLERGIC TO PENICILLIN, DEVELOPS RASH. MEDICATIONS: Her home medications include insulin, ziprasidone 80 mg p.o. at bedtime, trazodone 100 mg p.o. at bedtime, Januvia 50 mg daily, Lamictal 200 mg p.o. at bedtime. REVIEW OF SYSTEMS: As described in the history of present illness. All other systems reviewed and were found to be negative. PHYSICAL EXAMINATION: GENERAL: Middle-aged female, lying in bed, in no acute distress. VITAL SIGNS: Blood pressure 114/72, pulse 61, respirations 20, temperature 98.1 degrees Fahrenheit, O2 sat is 99% on room air. HEENT: Pupils are equal, round and reactive to light and accommodation. Extraocular muscles intact. No icterus. No pallor. No oral thrush. No pharyngeal congestion. Right ear, external ear canal redness noted. Tenderness in the right ear canal, right mastoid air cells and in the right preauricular region without any erythema externally, minimal swelling in the postauricular region. NECK: Supple. No JVD. LUNGS: Bilateral vesicular breath sounds. No wheezing. No rhonchi. CARDIOVASCULAR SYSTEM: S1 and S2 present, regular. ABDOMEN: Soft, nontender. Bowel sounds present. No guarding. No rigidity. No rebound tenderness noted. CENTRAL NERVOUS SYSTEM: Alert, awake, oriented x3. No focal deficits noted. EXTREMITIES: No edema. Palpable peripheral pulses. LABORATORY DATA: Labs done from the emergency room: WBC 10.7, hemoglobin 14.5, hematocrit 45.5, platelets 346. Sodium 133, potassium 4.4, chloride 98, bicarb 28, BUN 7, creatinine 0.6, glucose 281, calcium 9.7. Total bilirubin 0.6, AST 18, ALT 10, alkaline phosphatase 123, total protein 7.7, albumin 4.4, globulin 3.3. CT of the internal auditory canal done from the emergency room shows unremarkable noncontrast and has CT of the temporal bones. ASSESSMENT AND PLAN: Middle-aged female with history of hypertension, diabetes mellitus, bipolar disorder, schizophrenia. Came into the emergency room with right ear pain and discharge, pain radiating to the posterior auricular region. In the emergency department, the patient was evaluated and found to be elevated sugars. Ear, Nose and Throat was consulted who recommended admission for possible intravenous antibiotics, and the patient is being admitted for further management. 1. Right otitis externa, rule out malignant otitis, the patient with elevated sugars. 2. Hyperglycemia. 3. Diabetes mellitus. 4. Bipolar disorder and schizophrenia. PLAN: The patient is being admitted to regular floor. The patient received ciprofloxacin in the emergency room. We will continue ciprofloxacin 400 mg intravenous every 12 hours. Do Accu-Cheks before meals and at bedtime with sliding scale coverage. Continue Januvia 50 mg daily, Geodon 80 mg p.o. at bedtime, trazodone 100 mg p.o. at bedtime, Lamictal 200 mg p.o. at bedtime and insulin as needed with coverage. We will check labs as ordered. Obtain ENT consult and ID consult. We will get bone scan to rule out any osteomyelitis and MRI of the hip. We will add further recommendation as her clinical course progresses. Yaakov Benson MD
[2018-04-30 06:53] LABS: BASO # 0.1 K/uL (0.0-0.2); BASO % 0.6 % (0.0-2.0); EOS # 0.1 K/uL (0.0-0.7); EOS % 0.6 % (0.0-4.0); LYMPH # 3.7 K/uL (1.0-4.3); LYMPH % 40.8 % (20.0-40.0); MEAN CELL VOLUME 71.1 fL (81.0-99.0); MEAN CORPUSCULAR HEMOGLOBIN 22.7 pg (27.0-31.0); MEAN CORPUSCULAR HGB CONC 31.9 g/dL (33.0-37.0); MEAN PLATELET VOLUME 7.6 fL (7.2-11.7); MONO # 0.7 K/uL (0.0-0.8); MONO % 8.3 % (0.0-10.0); NEUT # 4.5 K/uL (1.8-7.0); NEUT % 49.7 % (50.0-75.0); NRBC % 0.2 % (0.0-2.0); RBC 5.71 Mil/uL (3.80-5.20); RED CELL DISTRIBUTION WIDTH 14.8 % (11.5-14.5)
[2018-04-30 07:22] LABS: LDL CHOLESTEROL 100 mg/dL (0-129)
[2018-04-30 07:23] LABS: ALB/GLOB RATIO 1.3 (1.0-2.1); ALBUMIN 3.6 g/dL (3.5-5.0); ALT/SGPT 7 U/L (9-52); AST/SGOT 15 U/L (14-36); BLOOD UREA NITROGEN 8 mg/dL (7-17); CALCIUM 9.4 mg/dl (8.6-10.4); GFR NON-AFRICAN AMERICAN > 60; HDL CHOLESTEROL 38 mg/dL (30-70)
[2018-04-30] MEDS: (Novolin R) Insulin Human Regular 100 units/ml vial SC SCH ×2 (07:38→11:28)
--- NOTE | 2018-04-30 10:03 | CP.PCM.PN ---
Subjective - Date & Time of Evaluation Date of Evaluation: 04/30/18 Time of Evaluation: 10:03 - Subjective Subjective: Progress note dictated #[id number] Objective - Vital Signs/Intake and Output Vital Signs (last 24 hours): Temp Pulse Resp BP Pulse Ox 98.2 F 79 20 136/80 96 04/30/18 08:00 04/30/18 08:00 04/30/18 08:00 04/30/18 08:00 04/30/18 08:00 Intake and Output: 04/30/18 04/30/18 06:59 18:59 Intake Total 240 Balance 240 - Medications Medications: Current Medications Acetaminophen (Tylenol 325mg Tab) 650 mg PO Q6 PRN PRN Reason: Pain, moderate (4-7) Last Admin: 04/30/18 07:12 Dose: 650 mg Heparin Sodium (Porcine) (Heparin) 5,000 units SC Q12 [facility] Last Admin: 04/30/18 09:20 Dose: 5,000 units Insulin Human Regular (Novolin R) 0 unit SC [facility]; Protocol Last Admin: 04/30/18 07:38 Dose: 3 u Lamotrigine (Lamictal) 200 mg PO HS [facility] Last Admin: 04/29/18 21:39 Dose: 200 mg Sitagliptin Phosphate (Januvia) 50 mg PO DAILY [facility] Last Admin: 04/30/18 09:20 Dose: 50 mg Trazodone HCl (Desyrel) 100 mg PO HS [facility] Last Admin: 04/29/18 21:39 Dose: 100 mg Ziprasidone (Geodon Cap) 80 mg PO HS [facility] Last Admin: 04/29/18 21:39 Dose: 80 mg - Labs Labs: 04/30/18 06:45 04/30/18 06:45
--- NOTE | 2018-04-30 11:59 | CON ---
DATE: 04/30/2018 REASON FOR CONSULTATION: Ear pain. HISTORY OF PRESENT ILLNESS: This is a 57-year-old female with multiple-day history of right ear pain, no hearing loss, the pain is moderate to severe, shoots down the mandible and is on the right. PAST MEDICAL HISTORY: As noted in the chart by me. MEDICATIONS: As noted in the chart by me. ALLERGIES: NOTED IN THE CHART BY ME. PHYSICAL EXAMINATION: HEENT: Head is atraumatic, normocephalic. FACE: Good facial movements bilaterally. CONSTITUTIONAL: Well-fed, well-nourished. COMMUNICATION: Communicates well and appropriately. EXTERNAL NOSE AND EARS: Nose; no masses, no lesions, no erythema, no edema. Ears: TM intact on both sides. No ear canal edema or discharge noted. ORAL CAVITY AND OROPHARYNX: No masses, no lesions, no erythema, no edema. LIPS AND GUMS: No masses. No lesions. No erythema. No edema. NECK: Supple. THYROID: No thyromegaly, no goiter. LYMPH NODES: No lymphadenopathy of the neck. Pain on the right TMJ. ASSESSMENT: 1. Ear pain. 2. Temporomandibular joint syndrome. 3. Otitis externa, less likely. PLAN: The patient to be ruled for malignant otitis externa since the patient has severe pain in the ear and is diabetic; however, my suspicion of malignant otitis externa is low at this point. Gui Benedict MD
--- NOTE | 2018-04-30 14:00 | MRI ---
Date of service: 04/30/2018 PROCEDURE: MRI OF THE BRAIN AND INTERNAL AUDITORY CANALS WITHOUT CONTRAST. HISTORY: r/o osteo COMPARISON: CT IAC without contrast from 04/29/2018 TECHNIQUE: Multiplanar, multisequence MR images of the brain and posterior fossa were obtained without gadolinium contrast. High-resolution posterior fossa and images through the cerebellopontine angle and internal auditory canals included: Axial 3-D fiesta, axial T1 and coronal T1 weighted sequences. FINDINGS: IAC/CP ANGLE: INTERNAL AUDITORY CANAL: No gross abnormality. CEREBELLOPONTINE ANGLE: No gross abnormality. INNER EAR STRUCTURES: Normally formed cochlea and semicircular canals. No signal abnormality in the membranous labyrinth of the cochlea, vestibule or the semicircular canals. BRAINSTEM: Grossly normal in appearance. MASTOIDS: Clear BRAIN: HEMORRHAGE:: None DWI: No evidence of an acute or early subacute infarction. BRAIN (LIMITED): There are mild chronic microangiopathic changes. There is no mass, mass effect or abnormal extra-axial fluid collection. There is no territorial infarction. The midline sagittal structures are normal. There are normal signal voids in the larger intracranial arteries. PARANASAL SINUSES: Clear OTHER FINDINGS: There are scattered foci of restricted diffusion in the soft tissues posterior to the right inferior superficial parotid lobe and right anterior external auditory canal. IMPRESSION: 1. Limited MRI of the IAC and cerebellopontine angles due to lack of gadolinium enhancement. No gross abnormality identified. 2. Mild chronic microangiopathic changes. 3. Scattered foci of restricted diffusion in the soft tissues posterior to the right inferior superficial parotid lobe and right anterior external auditory canal which may represent nonspecific edema infection or inflammation. No evidence for osteomyelitis on this limited noncontrast MRI examination.
--- NOTE | 2018-04-30 14:58 | NM ---
Date of service: 04/30/2018 PROCEDURE: Three-phase bone scan HISTORY: r/o osteo COMPARISON: April 30, 2018 MRI brain April 29, 2018. CT temporal bones. TECHNIQUE: Following administration of 19.3 miCu of Tc MDP three-phase bone scan performed attention base of skull/temporal bone on right.. FINDINGS: Flow component: Normal Blood pool component: Normal Delayed images at 3:00: Normal Other findings: None. IMPRESSION: Unremarkable three-phase bone scan. Particular attention directed to the right petrous bone/skull base and mastoid air cell region.
[2018-04-30] MEDS: Ciprofloxacin 400mg/200ml D5W 400 MG/200 ML BAG IVPB SCH (16:00)
[2018-04-30] MEDS: (Novolog) Insulin Aspart, Recombinant 100 u/ml 10 ml vial SC SCH ×3 (16:29→21:38)
--- NOTE | 2018-04-30 18:00 | CP.PCM.PN ---
Subjective - Date & Time of Evaluation Date of Evaluation: 04/30/18 Time of Evaluation: 07:00 - Subjective Subjective: IV rx ordered ent eval pending afeb c/o pain nad Objective - Vital Signs/Intake and Output Vital Signs (last 24 hours): Temp Pulse Resp BP Pulse Ox 97.5 F L 71 20 126/78 98 04/30/18 16:00 04/30/18 16:00 04/30/18 16:00 04/30/18 16:00 04/30/18 16:00 Intake and Output: 04/30/18 04/30/18 06:59 18:59 Intake Total 240 Balance 240 - Medications Medications: Current Medications Acetaminophen (Tylenol 325mg Tab) 650 mg PO Q6 PRN PRN Reason: Pain, moderate (4-7) Last Admin: 04/30/18 07:12 Dose: 650 mg Heparin Sodium (Porcine) (Heparin) 5,000 units SC Q12 [facility] Last Admin: 04/30/18 09:20 Dose: 5,000 units Ciprofloxacin (Cipro 400mg/200ml Dsw) 400 mg in 200 mls @ 133 mls/hr IVPB Q12H [facility]; Protocol Last Admin: 04/30/18 16:00 Dose: 133 mls/hr Insulin Aspart (Novolog) 8 unit SC AC [facility] Last Admin: 04/30/18 16:29 Dose: 8 units Insulin Aspart (Novolog) 0 unit SC ACHS [facility] Last Admin: 04/30/18 16:30 Dose: 3 units Insulin Glargine (Lantus) 20 unit SC HS [facility] Lamotrigine (Lamictal) 200 mg PO HS [facility] Last Admin: 04/29/18 21:39 Dose: 200 mg Sitagliptin Phosphate (Januvia) 50 mg PO DAILY [facility] Last Admin: 04/30/18 09:20 Dose: 50 mg Trazodone HCl (Desyrel) 100 mg PO HS [facility] Last Admin: 04/29/18 21:39 Dose: 100 mg Ziprasidone (Geodon Cap) 80 mg PO HS [facility] Last Admin: 04/29/18 21:39 Dose: 80 mg - Labs Labs: 04/30/18 06:45 04/30/18 06:45 - Constitutional Appears: Non-toxic, Chronically Ill - Head Exam Head Exam: NORMOCEPHALIC - Eye Exam Eye Exam: absent: Scleral icterus Pupil Exam: NORMAL ACCOMODATION - ENT Exam ENT Exam: Mucous Membranes Dry - Neck Exam Neck Exam: absent: Lymphadenopathy - Respiratory Exam Respiratory Exam: Decreased Breath Sounds - Cardiovascular Exam Cardiovascular Exam: REGULAR RHYTHM - GI/Abdominal Exam GI & Abdominal Exam: Distended, Soft - Rectal Exam Rectal Exam: Deferred - Exam Exam: NORMAL INSPECTION - Extremities Exam Extremities Exam: absent: Pedal Edema - Back Exam Back Exam: absent: CVA tenderness (L), CVA tenderness (R) - Neurological Exam Neurological Exam: Alert, Awake Assessment and Plan (1) Otitis externa Status: Acute (2) Mastoiditis Status: Acute - Assessment and Plan (Free Text) Assessment: cont rx
--- NOTE | 2018-04-30 19:44 | CON ---
DATE: 04/30/2018 ENDOCRINOLOGY CONSULTATION. LOCATION: In room 352. 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 PAST MEDICAL HISTORY: History of type 2 diabetes, on Januvia taken as 100 mg daily, history of hypertension and dyslipidemia, history of bipolar disorder with generalized anxiety and depression and has been treated for schizophrenia till the present time, history of colonic carcinoma and colon resection, the exact nature of the pathology is not known with the patient. FAMILY HISTORY: Positive for diabetes and hypertension. SOCIAL HISTORY: The patient is a current heavy smoker and has a supportive family. No other known substance use. REVIEW OF SYSTEMS: Admits to generalized body weakness with progressive bouts of dizziness and lightheadedness, worse in the last few days prior to admission. Also, admits to easy hypersomnolence and lethargy and easy fatigability and tiredness. No chest pain, but admits to progressive shortness of breath, especially on exertion. Her oral intake has been variable with nausea, dyspepsia, and vague upper abdominal pains. Also admits to marked polyuria, nocturia, and polydipsia. PHYSICAL EXAMINATION: GENERAL: This is an overweight female in no apparent distress. VITAL SIGNS: Blood pressure 140/80, pulse of 100 beats per minute regular, temperature 98, and respirations 20. Height is 5 feet and weight is 150 pounds. HEENT: Head is normocephalic. Eyes, anicteric with pink conjunctivae. Funduscopy not possible at this time. Ears, nose, and throat are otherwise normal. NECK: Supple. Thyroid gland is normal size. No carotid bruits or any adenopathy. CARDIOPULMONARY: Adynamic precordium, S1 and S2 is rapid and regular. LUNGS: Clear to auscultation. ABDOMEN: Flat and soft with positive bowel sounds. EXTREMITIES: No peripheral edema. Pulses are +2 bilaterally. LABORATORY DATA: The hemoglobin A1c is 14.5. Chemistry: BUN of 8, sodium 134, potassium 4, chloride 100, CO2 of 29, glucose 258, and creatinine 0.6. Her bedtime glucose was 378. Her glucose levels today have ranged from 283 to 393 mg/dL. ASSESSMENT: This is a 57-year-old female with uncontrolled and decompensated type 2 insulin-requiring diabetes with clearly suboptimal metabolic control even prior to this admission, on oral hypoglycemic therapy as noted, presenting here with malignant otitis externa in the right ear as noted and clearly related to suboptimal metabolic control. PLAN OF MANAGEMENT: The patient will clearly need a more physiologic basal and bolus insulin drug combination. If she expects to heal and recover from the otitis externa as mentioned, clearly there is no doubt that she is insulin requiring at this time and this will definitely expedite her clinical recovery with the initiation of basal and bolus insulin drug combination as mentioned. We will start with NovoLog given as 8 units t.i.d. before meals to start today and we will titrate accordingly to optimize the metabolic control. We will modify the coverage scale using a very low dose algorithm with NovoLog insulin coverage given only for glucose levels over 300 as ordered. We will add basal insulin with Lantus given as 20 units subcu at bedtime daily to start tonight. We will titrate incrementally as indicated to optimize metabolic control. We will follow. Amada Henry MD
--- NOTE | 2018-04-30 20:07 | PN ---
DATE: 04/30/2018 SUBJECTIVE: The patient is seen and examined at bedside. The patient offers no new complaints. Right ear pain is slightly better than yesterday. Denies any fever. Denies any other complaints. PHYSICAL EXAMINATION: GENERAL: Middle aged female lying in bed in no acute distress. VITAL SIGNS: Blood pressure 136/80, pulse 79, respirations 20, temperature 98.5 degrees Fahrenheit. O2 saturation 96% on room air. HEENT: Pupils equal, round and reacting to light and accommodation. Extraocular muscles are intact. No icterus. No pallor. No nasopharyngeal congestion, right preauricular and postauricular tenderness present. NECK: Supple. No JVD. LUNGS: Bilateral vesicular breath sounds. No wheezing, no rhonchi. CARDIOVASCULAR: S1 and S2 present. Regular. ABDOMEN: Soft, nontender. Bowel sounds present. No guarding, no rigidity, no rebound tenderness noted. CENTRAL NERVOUS SYSTEM: Awake, alert and oriented x3. No focal deficits noted. EXTREMITIES: No edema. Palpable peripheral pulses. MEDICATIONS: Includes subcutaneous heparin 5000 units every 12 hours, Lantus 20 units subcutaneous at bedtime, Lamictal 200 mg p.o. at bedtime, Januvia 50 mg daily, trazodone 100 mg p.o. at bedtime, Geodon 80 mg p.o. at bedtime. LABORATORY DATA: WBC 9, hemoglobin 13, hematocrit 40.6, platelets 329, sodium 134, potassium 4, chloride 100, bicarbonate 29, BUN 8, creatinine 0.6, glucose 283, hemoglobin A1c 14.5, calcium 9.4, phosphorus 4.1, magnesium 1.8, AST 15, triglycerides 140, cholesterol 173, LDL 100, HDL 38, TSH 0.59. UA specific gravity 1.037, protein 1+, glucose 3+, urobilinogen 2. Bone scan and MRI pending results. ASSESSMENT AND PLAN: Middle aged female with history of anxiety disorder, depression, schizophrenia, hypertension, diabetes mellitus, history of colon cancer status post surgery, admitted for right ear pain, hyperglycemia and uncontrolled diabetes mellitus. Continue with ciprofloxacin, Followup with bone scan and MRI results, discussed with EMT. Continue with current medications. Will obtain Endocrinology consult for uncontrolled diabetes. Continue with other psychiatric medications. Yaakov Benson MD [facility] # [id number]
[2018-04-30] MEDS ORDERED: (Lantus) Insulin Glargine, Recombinant SC SCH (22:00)
[2018-05-01] MEDS: Ciprofloxacin 400mg/200ml D5W 400 MG/200 ML BAG IVPB SCH (03:42)
[2018-05-01] MEDS: (Novolog) Insulin Aspart, Recombinant 100 u/ml 10 ml vial SC SCH ×3 (07:49→11:38)
[2018-05-01 08:29] VITALS: BP 128/84; PULSE 98; TEMP 98.4; O2SAT 98
--- NOTE | 2018-05-01 08:44 | CP.PCM.PN ---
Subjective - Date & Time of Evaluation Date of Evaluation: 05/01/18 Time of Evaluation: 07:30 - Subjective Subjective: Pgy3 Internal Medicine Resident Endocrinology Progress note for Dr. Henry Patient seen and examined at bedside. No acute events overnight. Patient was sleeping and repeatedly said she does not want to be bothered and wanted to go home today. ROS unobtainable as patient uncooperative. Objective - Vital Signs/Intake and Output Vital Signs (last 24 hours): Temp Pulse Resp BP Pulse Ox 98.4 F 98 H 20 128/84 98 05/01/18 08:00 05/01/18 08:00 05/01/18 08:00 05/01/18 08:00 05/01/18 08:00 - Medications Medications: Current Medications Acetaminophen (Tylenol 325mg Tab) 650 mg PO Q6 PRN PRN Reason: Pain, moderate (4-7) Last Admin: 04/30/18 07:12 Dose: 650 mg Heparin Sodium (Porcine) (Heparin) 5,000 units SC Q12 [facility] Last Admin: 04/30/18 21:43 Dose: 5,000 units Ciprofloxacin (Cipro 400mg/200ml Dsw) 400 mg in 200 mls @ 133 mls/hr IVPB Q12H [facility]; Protocol Last Admin: 05/01/18 03:42 Dose: 133 mls/hr Insulin Aspart (Novolog) 8 unit SC AC [facility] Last Admin: 05/01/18 07:54 Dose: 8 units Insulin Aspart (Novolog) 0 unit SC ACHS [facility] Last Admin: 05/01/18 07:49 Dose: Not Given Insulin Glargine (Lantus) 20 unit SC HS [facility] Last Admin: 04/30/18 21:44 Dose: 20 units Lamotrigine (Lamictal) 200 mg PO HS [facility] Last Admin: 04/30/18 21:45 Dose: 200 mg Sitagliptin Phosphate (Januvia) 50 mg PO DAILY [facility] Last Admin: 04/30/18 09:20 Dose: 50 mg Trazodone HCl (Desyrel) 100 mg PO HS [facility] Last Admin: 04/30/18 21:43 Dose: 100 mg Ziprasidone (Geodon Cap) 80 mg PO HS [facility] Last Admin: 04/30/18 21:43 Dose: 80 mg - Labs Labs: 04/30/18 06:45 04/30/18 06:45 - Constitutional Appears: Non-toxic, No Acute Distress, Other (uncooperative) Assessment and Plan - Assessment and Plan (Free Text) Assessment: 57yo female PMHx T2DM, HTN, HLD, Bipolar d/o, schizophrenia, generalized anxiety, and depression presents with severe R ear pain and was admitted for otitis externia and hyperglycemia. Endocrinology consulted for uncontrolled DM Plan: Uncontrolled T2DM HgbA1c noted to be 14.5. Patient's overnight accuchecks noted and this AM blood work reviewed. Will increase Novolog to 10U before meals tid and Lantus remain at 20U hs. Continue home Januvia as ordered. Patient will need strict outpatient follow up. ems educator consulted. Continue further management as per primary. Discussed with Dr. Carl Meade PGY3
--- NOTE | 2018-05-01 09:14 | CP.PCM.PN ---
Subjective - Date & Time of Evaluation Date of Evaluation: 05/01/18 Time of Evaluation: 09:14 - Subjective Subjective: Discharge summary dictated #[id number] Objective - Vital Signs/Intake and Output Vital Signs (last 24 hours): Temp Pulse Resp BP Pulse Ox 98.4 F 98 H 20 128/84 98 05/01/18 08:00 05/01/18 08:00 05/01/18 08:00 05/01/18 08:00 05/01/18 08:00 - Medications Medications: Current Medications Acetaminophen (Tylenol 325mg Tab) 650 mg PO Q6 PRN PRN Reason: Pain, moderate (4-7) Last Admin: 04/30/18 07:12 Dose: 650 mg Heparin Sodium (Porcine) (Heparin) 5,000 units SC Q12 [facility] Last Admin: 04/30/18 21:43 Dose: 5,000 units Ciprofloxacin (Cipro 400mg/200ml Dsw) 400 mg in 200 mls @ 133 mls/hr IVPB Q12H [facility]; Protocol Last Admin: 05/01/18 03:42 Dose: 133 mls/hr Insulin Aspart (Novolog) 8 unit SC AC [facility] Last Admin: 05/01/18 07:54 Dose: 8 units Insulin Aspart (Novolog) 0 unit SC ACHS [facility] Last Admin: 05/01/18 07:49 Dose: Not Given Insulin Glargine (Lantus) 20 unit SC HS [facility] Last Admin: 04/30/18 21:44 Dose: 20 units Lamotrigine (Lamictal) 200 mg PO HS [facility] Last Admin: 04/30/18 21:45 Dose: 200 mg Sitagliptin Phosphate (Januvia) 50 mg PO DAILY [facility] Last Admin: 04/30/18 09:20 Dose: 50 mg Trazodone HCl (Desyrel) 100 mg PO HS [facility] Last Admin: 04/30/18 21:43 Dose: 100 mg Ziprasidone (Geodon Cap) 80 mg PO HS [facility] Last Admin: 04/30/18 21:43 Dose: 80 mg - Labs Labs: 04/30/18 06:45 04/30/18 06:45
[2018-05-01 10:50] LABS: ALB/GLOB RATIO 1.4 (1.0-2.1); ALBUMIN 3.5 g/dL (3.5-5.0); ALT/SGPT 7 U/L (9-52); AST/SGOT 15 U/L (14-36); BLOOD UREA NITROGEN 8 mg/dL (7-17); CALCIUM 9.2 mg/dl (8.6-10.4); GFR NON-AFRICAN AMERICAN > 60
[2018-05-01] MEDS ORDERED: (Novolog) Insulin Aspart, Recombinant 100 u/ml 10 ml vial SC SCH (11:11)
--- NOTE | 2018-05-01 13:08 | CP.PCM.PN ---
Subjective - Date & Time of Evaluation Date of Evaluation: 05/01/18 Time of Evaluation: 08:00 - Subjective Subjective: discussed on rounds for d/c on PO Cipro follow up as out pt Objective - Vital Signs/Intake and Output Vital Signs (last 24 hours): Temp Pulse Resp BP Pulse Ox 98.4 F 98 H 20 128/84 98 05/01/18 08:00 05/01/18 08:00 05/01/18 08:00 05/01/18 08:00 05/01/18 08:00 - Medications Medications: Current Medications Acetaminophen (Tylenol 325mg Tab) 650 mg PO Q6 PRN PRN Reason: Pain, moderate (4-7) Last Admin: 04/30/18 07:12 Dose: 650 mg Heparin Sodium (Porcine) (Heparin) 5,000 units SC Q12 [facility] Last Admin: 05/01/18 09:25 Dose: 5,000 units Ciprofloxacin (Cipro 400mg/200ml Dsw) 400 mg in 200 mls @ 133 mls/hr IVPB Q12H [facility]; Protocol Last Admin: 05/01/18 03:42 Dose: 133 mls/hr Insulin Aspart (Novolog) 0 unit SC ACHS [facility] Last Admin: 05/01/18 11:38 Dose: Not Given Insulin Aspart (Novolog) 10 unit SC AC [facility] Last Admin: 05/01/18 12:19 Dose: 10 units Insulin Glargine (Lantus) 20 unit SC HS [facility] Last Admin: 04/30/18 21:44 Dose: 20 units Lamotrigine (Lamictal) 200 mg PO HS [facility] Last Admin: 04/30/18 21:45 Dose: 200 mg Sitagliptin Phosphate (Januvia) 50 mg PO DAILY [facility] Last Admin: 05/01/18 09:25 Dose: 50 mg Trazodone HCl (Desyrel) 100 mg PO HS [facility] Last Admin: 04/30/18 21:43 Dose: 100 mg Ziprasidone (Geodon Cap) 80 mg PO HS [facility] Last Admin: 04/30/18 21:43 Dose: 80 mg - Labs Labs: 04/30/18 06:45 05/01/18 10:31 Assessment and Plan (1) Otitis externa Status: Acute (2) Mastoiditis Status: Acute
--- NOTE | 2018-05-01 18:47 | PN ---
DATE: 05/01/2018 ENDOCRINOLOGY FOLLOWUP NOTE LOCATION: Room 352. SUBJECTIVE: This is a 57-year-old female with recent uncontrolled type 2 insulin-requiring diabetes with marked hyperglycemic accelerations and is now being followed closely for metabolic management. She also has ongoing IV antibiotic management for malignant otitis externa with pseudomonas infection as noted. Her glycemic levels are fluctuating, but improved and the glucose levels overnight have ranged from 145 to 182 and 148 mg/dL. LABORATORY DATA: Her chemistry showed a BUN of 8, sodium 133, potassium 3.8, chloride 100, CO2 of 28, glucose 238, and creatinine 0.7. Her hemoglobin A1C is 14.5%. ASSESSMENT: This is a 57-year-old female with uncontrolled and decompensated type 2 insulin-requiring diabetes with marked hyperglycemic accelerations and clearly suboptimal metabolic control even prior to this admission and presenting here with otitis externa and pseudomonas infection as noted. There is very strong correlation with poor and suboptimal metabolic control and the impaired phagocyte function of the leukocytes in terms of overcoming an infection with this underlying poor metabolic control of any diabetic condition and clearly the patient has had poor metabolic control aforementioned. PLAN: Plan of management, we will continue the modified basal and bolus insulin regimen as ordered and we will increase the Novolog to 10 units three times daily before meals to start today as ordered. We will also continue the basal insulin given as Lantus 20 units subcutaneous at bedtime daily as given. We will titrate incrementally as indicated to optimize metabolic control. We will continue the low dose correction scale using Novolog insulin as scheduled. We will follow and advice accordingly. Amada Henry MD
--- NOTE | 2018-05-02 05:04 | DS ---
DISCHARGE DIAGNOSES: 1. Otitis externa. 2. Uncontrolled diabetes mellitus with hyperglycemia. 3. Bipolar disorder. 4. Schizophrenia. 5. Hypertension. 6. History of colon carcinoma, status post surgery. HISTORY OF PRESENT ILLNESS: Mr. Mon is a 57-year-old female with history of schizophrenia, bipolar disorder, hypertension, diabetes mellitus, history of colon CA, came in to the emergency room with complaints of right ear pain and questionable discharge. In the ED, the patient was found to be having otitis externa, and because of her uncontrolled diabetes, the patient is being admitted to rule out malignant otitis externa versus osteomyelitis. Today, the patient is feeling better. Denies any headache or dizziness. Denies any chest pain, shortness of breath, or wheezing. Denies any nausea, vomiting, abdominal pain, diarrhea, or constipation. Denies any urinary complaints. Denies any leg pains or leg cramps. Denies any other neurologic symptoms. All other systems reviewed and were found to be negative. PHYSICAL EXAMINATION: GENERAL: A middle-aged female, lying in bed, in no acute distress. VITAL SIGNS: Blood pressure 128/84, pulse 98, respirations 20, temperature 98.4 degrees Fahrenheit, O2 sat 98% on room air. HEENT: Pupils equal, round, and reacting to light and accommodation. Extraocular muscles intact. No icterus. No pallor. No oral thrush. No pharyngeal congestion. Minimal tenderness in the preauricular region. No erythema or redness noted. No swelling noted. NECK: Supple. No JVD. LUNGS: Bilateral vesicular breath sounds. No wheezing. No rhonchi. CARDIOVASCULAR SYSTEM: S1, S2 present, regular. ABDOMEN: Soft and nontender. Bowel sounds present. No guarding. No rigidity. No rebound tenderness noted. CENTRAL NERVOUS SYSTEM: Alert, awake, and oriented x3. No focal deficits noted. EXTREMITIES: No edema. Palpable peripheral pulses. LABORATORY DATA: From today; sodium 133, potassium 3.8, chloride 100, bicarb 28, BUN 8, creatinine 0.7, glucose 148, calcium 9.2, phosphorus 3.6, magnesium 1.6. Bilirubin 0.3, AST 15, ALT 7, alkaline phosphatase 86, total protein 6, albumin 3.5. MRI of the orbit, face, neck, and IAC negative. Bone scan negative for any osteomyelitis. Internal auditory canal CT negative. HOSPITAL COURSE: The patient was admitted to the hospital for otitis externa. The patient was started on IV antibiotics. The patient had MRI and the bone scan done, which were negative for any osteomyelitis or malignant otitis, and the patient's sugars were uncontrolled. The patient's insulin regimen is adjusted by Endocrinology. The patient is evaluated by ENT and ID. Discussed with ID and ENT. The patient is cleared by all the consultants. Her insulin regimen is adjusted. Dr. Nuñez recommended p.o. ciprofloxacin to be continued for one week. As the patient is otherwise hemodynamically stable, the patient is being discharged. Advised the patient to followup with PMD, ENT, Endocrinology as outpatient, and Psychiatry as outpatient. Advised to continue with her home medications. Medications given from the hospital include ciprofloxacin 500 mg p.o. b.i.d. for five days, Lantus insulin 20 unit subcu at bedtime, regular insulin 10 units before meals. I advised to continue with all other psychiatric medication and Januvia 50 mg daily. Also, refer to the discharge medication reconciliation given at the time of discharge. DIET: Heart healthy, 1800-calorie, ADA diet. CONDITION UPON DISCHARGE: The patient is alert, awake, and oriented x3, and hemodynamically stable at the time of discharge. Yaakov Benson MD
== END 2018-05-01 13:43 | disposition home or self-care (01) | DRG 73 ==
LOC: C.ER 12:49 → C.9E 17:58 → C.3T 18:11
PROVIDERS: ADMIT Internal Medicine; ATTEND Internal Medicine
DX: H60.91 Unspecified otitis externa, right ear (principal); E11.65 Type 2 diabetes mellitus with hyperglycemia; F20.9 Schizophrenia, unspecified; B96.5 Pseudomonas (aeruginosa) (mallei) (pseudomallei) as the cause of diseases classified elsewhere; F31.9 Bipolar disorder, unspecified; F17.210 Nicotine dependence, cigarettes, uncomplicated; F41.1 Generalized anxiety disorder; Z85.038 Personal history of other malignant neoplasm of large intestine; H70.91 Unspecified mastoiditis, right ear; M26.609 Unspecified temporomandibular joint disorder, unspecified side; E66.3 Overweight; I10 Essential (primary) hypertension